=== PATIENT | female | born 1960 | race Caucasian/White ===

== ENCOUNTER 2023-05-22 08:39 | Day surgery (SDC) | payer MEDICAID ==
[~2023-05-22] VITALS: Ht 154.9 cm; Wt 61.4 kg
[2023-05-22] MEDS ORDERED: PANT-47 PO (09:35)
[2023-05-22] MEDS ORDERED: LEVO88TA2 PO (09:35)
[2023-05-22] MEDS ORDERED: BACL10TA2 PO (09:35)
[2023-05-22] MEDS ORDERED: LISI-644 PO (09:35)
[2023-05-22] MEDS ORDERED: DOL10T PO (09:35)
[2023-05-22 09:40] VITALS: BP 122/69; PULSE 73; RESP 20
[2023-05-22] MEDS ORDERED: LIDOcaine Viscous 15ml cup ONE (09:41)
[2023-05-22] MEDS ORDERED: fentaNYL/PF 50MCG/1 ML 2ML syringe ONE (09:44)
[2023-05-22] MEDS ORDERED: MIDAZolam 1 MG/ML 5ML VIAL ONE (09:44)
[2023-05-22 10:27] VITALS: BP 122/72; PULSE 72; RESP 12; O2SAT 99
[2023-05-22 10:31] VITALS: BP 130/59; PULSE 88; RESP 23; O2SAT 99
[2023-05-22 10:41] VITALS: BP 120/85; PULSE 85; RESP 12; O2SAT 100
[2023-05-22 10:51] VITALS: BP 141/83; PULSE 82; RESP 18; O2SAT 98
== END 2023-05-22 11:10 | disposition home or self-care (01) ==
LOC: GI LAB 08:39
PROVIDERS: ATTEND Internal Medicine Gastroenterology
DX: R19.7 Diarrhea, unspecified (principal); R10.13 Epigastric pain; K64.8 Other hemorrhoids; K44.9 Diaphragmatic hernia without obstruction or gangrene; K29.70 Gastritis, unspecified, without bleeding; K31.7 Polyp of stomach and duodenum; I10 Essential (primary) hypertension; Z79.899 Other long term (current) drug therapy; Z86.19 Personal history of other infectious and parasitic diseases
CPT/HCPCS: 43239; 43251; 45380; 99152; 99153; J2250; J3010; J7030; Z7512; A4620; C1889